=== PATIENT | female | born 1995 | race Caucasian/White ===

== ENCOUNTER 2019-05-24 17:16 | Emergency (ER) | payer OTHER ==
[2019-05-24 17:51] VITALS: BP 103/77
[2019-05-24] MEDS ORDERED: DEXAMETHASONE 10 MG/ML VIAL PO STA (18:02)
[2019-05-24] MEDS ORDERED: CHERRY SYRUP 10 ML UDC PO ONE (18:02)
--- NOTE | 2019-05-24 18:05 | ED Physician Documentation ---
PD HPI BACK PAIN - Stated complaint Stated Complaint: BACK PX - Chief complaint Chief Complaint: Back Pain - History obtained from History obtained from: Patient, Family - History of Present Illness Timing - onset: Today Timing - duration: Hours Timing - details: Abrupt onset, Still present in ED Location: Lower Quality: Pain, Spasm, Sharp, Similar to prior episodes Associated symptoms: No: Fever, Weakness, Numbness, Incontinent of urine, Unable to urinate, Hematuria, Incontinent of stool Improves with: Rest, Position Worsened by: Movement Contributing factors: Other (unknown) Similar symptoms before: Diagnosis (pulled muscle) Recently seen: Not recently seen - Additional information Additional information: Previously well 24-year-old female has developed an acute low back pain she has pain in the center of her back at the very lowest part part that is similar to what she had a year ago when a similar thing happened. She states that she just stood up today and had the acute spasm occur. She is continued to be in pain and does not want to sit back down. When she had this happen to her about a y ear ago she had to be carried into the emergency department there and this lasted about 5 days she has had resolution of her symptoms and no symptoms in between. She cannot recall anything that she did in the past week where she would have done any heavy lifting prolonged carrying ernestine positioning. Review of Systems Constitutional: denies: Fever Eyes: denies: Decreased vision Ears: denies: Ear pain Nose: denies: Congestion Throat: denies: Sore throat Cardiac: denies: Chest pain / pressure, Palpitations Respiratory: denies: Dyspnea, Cough GI: denies: Abdominal Pain, Nausea, Vomiting : denies: Dysuria, Frequency Skin: denies: Rash Musculoskeletal: reports: Back pain. denies: Neck pain, Extremity pain, Joint pain, Extremity swelling Neurologic: denies: Generalized weakness, Focal weakness, Numbness PD PAST MEDICAL HISTORY - Present Medications Home Medications: Ambulatory Orders Medication Instructions Recorded Confirmed Cyclobenzaprine [Flexeril] 10 mg PO TID PRN #20 tablet 05/24/19 Hydrocodone/Acetaminophen 1 - 2 each PO Q6H PRN #14 tablet 05/24/19 [Hydrocodon-Acetaminophen 5-325] - Allergies Allergies/Adverse Reactions: Allergies Allergy/AdvReac Type Severity Reaction Status Date / Time No Known Drug Allergies Allergy Verified 05/24/19 17:43 PD ED PE NORMAL - Vitals Vital signs reviewed: Yes (tachy ) - General General: Alert and oriented X 3, No acute distress, Well developed/nourished - HEENT HEENT: Atraumatic, PERRL - Respiratory Respiratory: No respiratory distress - Back Back: No CVA TTP, Other (mild tenderness midline at the L/S junction ) - Derm Derm: Normal color, Warm and dry, No rash - Extremities Extremities: No deformity, No edema - Neuro Neuro: Alert and oriented X 3, tobacco sorter 2-12 intact, No motor deficit, No sensory deficit, Normal speech Eye Opening: Spontaneous Motor: Obeys Commands Verbal: Oriented GCS Score: 15 - Psych Psych: Normal mood, Normal affect Results - Vitals Vitals: Vital Signs - 24 hr 05/24/19 17:43 Temperature 37 C Heart Rate 119 H Respiratory 17 Rate Blood Pressure 103/77 O2 Saturation 98 Oxygen O2 Source Room air PD MEDICAL DECISION MAKING - ED course Complexity details: considered differential, d/w patient, d/w family ED course: 24-year-old female with acute onset of spasm in her lower back today after standing up, has no explanation for specific symptoms. She is administered dexamethasone 10 mg orally we will place her on some pain medication muscle relaxant and expect resolution in 2 to 5 days. Departure - Departure Disposition: 01 Home, Self Care Clinical Impression: Spasm of back muscles Instructions: ED Low Back Pain Injury Follow-Up: ANGELES VÁZQUEZ MD [Primary Care Provider] - Prescriptions: Cyclobenzaprine [Flexeril] 10 mg PO TID PRN #20 tablet PRN Reason: Spasms Hydrocodone/Acetaminophen [Hydrocodon-Acetaminophen 5-325] 1 - 2 each PO Q6H PRN #14 tablet PRN Reason: pain
== END 2019-05-24 18:30 | disposition home or self-care (01) ==
LOC: ED 17:16
DX: M62.830 Muscle spasm of back (principal)
CPT/HCPCS: 99282; 99284; A9270